=== PATIENT | female | born 1990 | race Caucasian/White ===

== ENCOUNTER 2019-09-28 18:42 | Emergency (ER) | payer OTHER ==
[~2019-09-28] VITALS: Ht 162.6 cm; Wt 78.1 kg
[2019-09-28 19:09] VITALS: BP 152/97
--- NOTE | 2019-09-28 19:10 | PHYS DOC ---
Past Medical History Attending Signature I have participated in the care of this patient and I have reviewed and agree with all pertinent clinical information above including history, exam, and recommendations. (SADI DUNCAN MD) Adult General Chief Complaint Chief Complaint: SORE THROAT HPI HPI Patient is a 29 year old female who presents with nasal congestion, cough, throat pain for 2 days. She also complains of fever. She has not taken any Tylenol or ibuprofen since this morning. She rates her pain an 8 out of 10. (LIN RING APRN) Review of Systems Review of Systems Constitutional: fever or chills [] HENT: nasal congestion or sore throat [] Respiratory: cough or denies shortness of breath [] All other systems were reviewed and found to be within normal limits, except as documented in this note. (LIN RING APRN) Current Medications Current Medications Current Medications Medications (Trade) Dose Ordered Sig/Lukas Start Time Stop Time Status Last Admin Dose Admin Ibuprofen (Motrin) 600 mg 1X ONCE 09/28/19 19:15 09/28/19 19:16 DC 09/28/19 19:29 600 MG (SADI DUNCAN MD) Allergies Allergies Allergies Coded Allergies Type Severity Reaction Last Updated Verified Penicillins Allergy Severe RASH 09/28/19 Yes Sulfa (Sulfonamide Antibiotics) Allergy Severe RASH 09/28/19 Yes (SADI DUNCAN MD) Physical Exam Physical Exam Constitutional: Well developed, well nourished, no acute distress, non-toxic appearance. [] HENT: Normocephalic, atraumatic, bilateral external ears normal, oropharynx moist, no oral exudates, nose normal. Throat red, swollen and with exudates. [] Eyes: PERRLA, EOMI, conjunctiva normal, no discharge. [] Neck: Normal range of motion, no tenderness, supple, no stridor. [] Cardiovascular:Heart rate regular rhythm, no murmur [] Lungs & Thorax: Bilateral breath sounds clear to auscultation [] Abdomen: Bowel sounds normal, soft, no tenderness, no masses, no pulsatile masses. [] Skin: Warm, dry, no erythema, no rash. [] Back: No tenderness, no CVA tenderness. [] Extremities: No tenderness, no cyanosis, no clubbing, ROM intact, no edema. [] Neurologic: Alert and oriented X 3, normal motor function, normal sensory function, no focal deficits noted. [] Psychologic: Affect normal, judgement normal, mood normal. [] (LIN RING APRN) Current Patient Data Vital Signs Vital Signs Date Time Temp Pulse Resp B/P (MAP) Pulse Ox O2 Delivery O2 Flow Rate FiO2 09/28/19 19:09 99.1 110 18 152/97 (115) 98 Room Air 99.1 (SADI DUNCAN MD) Lab Values Laboratory Tests Test 09/28/19 19:10 Influenza Type A Antigen Negative (NEGATIVE) Influenza Type B Antigen Negative (NEGATIVE) (SADI DUNCAN MD) Lab Values Laboratory Tests Test 09/28/19 19:10 Influenza Type A Antigen Negative (NEGATIVE) Influenza Type B Antigen Negative (NEGATIVE) (LIN RING APRN) EKG EKG [] (LIN RING APRN) Radiology/Procedures Radiology/Procedures [] (LIN RING APRN) Course & Med Decision Making Course & Med Decision Making Pertinent Labs and Imaging studies reviewed. (See chart for details) Lungs are clear to auscultation all lobes. Alert and oriented. Speaks in full clear sentences. Throat is reddened with tonsils 1+ swelling and exudates. Uvula midline. No trismus. Skin pink warm and dry. Ambulatory with steady gait. Bilateral tympanic is white. Patient denies chest tightness, chest pain, shortness of air, nausea, vomiting, diarrhea, headache, dizziness, syncope, numbness tingling, focal weakness, visual changes. She is eating and drinking appropriately. Strep is negative but because of tonsil exam findings, patient will be treated. [] (LIN RING APRN) Dragon Disclaimer Dragon Disclaimer This electronic medical record was generated, in whole or in part, using a voice recognition dictation system. (LIN RING APRN) Departure Departure Impression: Primary Impression: Sore throat Disposition: 01 HOME, SELF-CARE Condition: STABLE Referrals: NO PCP (PCP) Patient Instructions: Strep Throat Additional Instructions: Patient medication as prescribed in with food. Follow-up with primary care provider. Take ibuprofen or Tylenol for your pain and fever. Drink Plenty of fluids. Scripts Methylprednisolone (MEDROL) 4 Mg Tab.ds.pk 1 PKG PO UD, #1 PKG Prov: LIN RING APRN 09/28/19 Azithromycin (AZITHROMYCIN TABLET) 250 Mg Tablet 1 PKG PO UD for 5 Days, #6 TAB 0 Refills 2 the first day followed by 1 for days 2-5 Prov: LIN RING APRN 09/28/19 LIN RING APRN Sep 28, 2019 19:10 SADI DUNCAN MD Sep 28, 2019 21:35
[2019-09-28] MEDS ORDERED: IBUPROFEN 200 MG TABLET. PO ONE (19:15)
[2019-09-28] MEDS ORDERED: METH4TAB2 PO (19:47)
[2019-09-28] MEDS ORDERED: AZIT250T6 PO (19:47)
[2019-09-28 19:57] LABS: INFLUENZA A PATIENT NEGATIVE (NEGATIVE); INFLUENZA B PATIENT NEGATIVE (NEGATIVE)
== END 2019-09-28 20:24 | disposition home or self-care (01) ==
LOC: ER 18:42
DX: J02.9 Acute pharyngitis, unspecified (principal); Z88.0 Allergy status to penicillin; Z88.2 Allergy status to sulfonamides
CPT/HCPCS: 87070; 87804; 87880; 99283